=== PATIENT | male | born 1995 | race Caucasian/White ===

== ENCOUNTER 2021-09-29 16:01 | Emergency (ER) | payer BC ==
[~2021-09-29] VITALS: Ht 185.4 cm; Wt 82.0 kg
[2021-09-29] MEDS ORDERED: KETOROLAC 30MG/ML VIAL IM ONE (18:30)
[2021-09-29 18:50] VITALS: BP 120/81
== END 2021-09-29 19:08 | disposition home or self-care (01) ==
LOC: ER 16:15
DX: M53.3 Sacrococcygeal disorders, not elsewhere classified (principal)
CPT/HCPCS: 72220; 96372; 99283; J1885